=== PATIENT | female | born 1985 | race Caucasian/White ===

== ENCOUNTER → 2018-10-27 | Outpatient (CLI) | payer BC | LOC: RAD 09:45 | DX: M54.5 Low back pain (principal) ==

== ENCOUNTER 2019-06-17 21:51 | Emergency (ER) | payer BC ==
[2019-06-17] MEDS ORDERED: AMOXICILLIN AND1 TA2 PO (23:47)
[2019-06-17] MEDS ORDERED: NORCO 325 MG-51 TA1 PO (23:48)
[2019-06-17 23:54] VITALS: BP 156/91
== END 2019-06-17 23:54 | disposition home or self-care (01) ==
LOC: ED 21:51
DX: S71.151A Open bite, right thigh, initial encounter (principal); Z23 Encounter for immunization; W54.0XXA Bitten by dog, initial encounter
CPT/HCPCS: 90715; J1885

== ENCOUNTER → 2021-09-10 | Outpatient (CLI) | payer BC ==
[~2021-09-10] MED LIST: AMOXICILLIN AND1 TA2 PO; NORCO 325 MG-51 TA1 PO
== END ==
LOC: RAD 14:14 → LAB 14:14
DX: U07.1 COVID-19 (principal)